=== PATIENT | male | born 1970 | race Caucasian/White ===

== ENCOUNTER 2025-02-11 09:31 | Inpatient (IN) | payer OTHER, SELFPAY ==
[2025-02-10 22:24] VITALS: BP 150/98
--- NOTE | 2025-02-10 22:37 | ED.GENMED ---
History of Present Illness
General
Chief Complaint: Numbness
Source: patient
Time Seen by Provider: 02/10/25 22:30
History of Present Illness
History of Present Illness:
54-year-old male presents to the emergency room complaining of left-sided paresthesias and a heaviness in his left arm and left leg. Patient states symptoms began around 2 PM. Symptoms have remained constant since then. Patient feels like his
left hand is having difficulty gripping and doing fine motor tasks. He denies any headache. Patient has a history of high cholesterol for which he takes a statin. He denies any recent trauma.
Past History
Past History
ED Past Medical History: Hypercholesterolemia
ED Past Surgical History: None and Urological (surgery for vasectomy)
Social History
Tobacco: Non-smoker
Alcohol: None
Personal:
Living: with family
Employment: Employed
Phy Exam
Physical Exam
Physical Exam:
General: Awake, Alert, Oriented X3. No acute distress.
Vitals: Moderately hypertensive
Head: Atraumatic
Eyes: Pupils equal, EOMI
Throat: Airway intact, no exudates
Neck: Trachea midline
Lungs: Clear and equal b/l
Heart: Regular rate, no murmurs
Abd: Soft, Nontender, No pulsatile mass
Neuro: Cranial nerves intact, muscle strength equal bilaterally, cerebellar exam normal, visual fortune intact
Skin: Warm, dry, no rash
Extremities: pulses equal b/l, no edema
Scores
NIH Stroke Score
Level of Consciousness: 0 - Alert
LOC Questions: 0-Answers both correctly
LOC Commands: 0-Performs both correctly
Best Horizontal Gaze: 0-Normal
Visual Fortune: 0=Normal, no visual loss
Facial Palsy: 0=Normal, symmetrical
Motor - Right Arm: 0=No drift 10 seconds
Motor - Left Arm: 0=No drift 10 seconds
Motor - Right Le-No drift 5 seconds
Motor - Left Le-No drift 5 seconds
Limb Ataxia: 0-Absent
Sensation: 0-Normal
Best Language: 0-No aphasia
Dysarthria: 0-Normal
Extinction and Inattention: 0-No abnormality
Total Score:: 0
Course
Orders/Labs/Results
Orders:
Orders
02/10/25 22:14
Electrocardiogram (*1) Urgent
Reason for Study: Chest Pain
EKG- Treatment ONCE
CXR2 [CR Chest - 2 Views ] Urgent
Comment:
Reason For Exam: chest pain
02/10/25 22:38
CT Head & Neck Angio W/wo IV Urgent
Comment:
Reason For Exam: left sided paresthesia/subj weakness
Bedside Glucose- Treatment ONCE
Cardiac Monitoring- Treatment ONCE
02/10/25 22:39
Electrocardiogram (*1) Stat
Reason for Study: Other
Other Reason for Exam: neuro symptoms
EKG- Treatment ONCE
02/10/25 22:42
Complete Blood Count/With Diff Urgent
Comprehensive Metabolic Panel Urgent
Troponin I Urgent
Abnormal Lab Results
02/10/25
22:42
WBC 11.3 H 10^3/uL
(4.8-10.8)
Absolute Lymphs (auto) 4.2 H 10^3/uL
(1.2-3.4)
Absolute Monos (auto) 0.7 H 10^3/uL
(0.1-0.6)
Glucose 159 H mg/dl
(70-99)
ALT 78 H U/L
(0-50)
02/10/25 22:42
02/10/25 22:42
Vital Signs
Initial and Last Documented VS:
Initial Vital Signs
Temp Pulse Resp BP Pulse Ox
98.5 F 109 18 150/98 98
02/10/25 22:24 02/10/25 22:24 02/10/25 22:24 02/10/25 22:24 02/10/25 22:24
Last Documented Vital Signs
Temp Pulse Resp BP Pulse Ox
98.5 F 94 12 157/90 96
02/10/25 22:24 02/11/25 00:00 02/11/25 00:00 02/11/25 00:00 02/10/25 22:50
ED Attending Note
-
Portions of this chart may have been created with voice recognition software.� Occasional wrong word or��sound alike� substitutions may have occurred due to the inherent limitations of voice recognition software.
Discharge Plan
Departure
Patient Disposition: Admit
Date of Disposition: 02/11/25
Time of Disposition: 03:19
Admit to: Telemetry
Presentation/result/management discussed w/ accepting MD/DO: Hospitalist
Condition: Fair
Discharge Problem:
Acute CVA (cerebrovascular accident)
Prescriptions:
No Action
simvastatin 10 MG tablet
10 mg PO HS
fexofenadine [Mel] 180 MG tablet
180 mg PO DAILY
mometasone [Nasonex] 17 GM spray,non-aerosol
17 gm NS DAILY
buspirone [BuSpar] 15 MG tablet
15 mg PO DAILY
desvenlafaxine succinate [Pristiq] 100 MG tablet extended release 24 hr
100 mg PO DAILY
oxycodone-acetaminophen 1 TABLET tablet
1 - 2 tab PO Q4HPRN PRN (Reason: prn for pain) Qty: 20 0RF
tamsulosin 0.4 MG capsule
0.4 mg PO DAILY Qty: 10 0RF
ondansetron 4 MG tablet,disintegrating
4 mg PO Q8 PRN (Reason: prn for nausea and vomiting) Qty: 14 0RF
Referrals:
Alireza Caballero MD [Family Provider] -
Interventions
Interventions:
*Risk Screen - Suicide Last Done: 02/10/25 22:24
*General Assessment Last Done: 02/10/25 22:24
*Neglect/Abuse Screening Last Done: 02/10/25 22:24
*ED- Fall Risk Assessment Last Done: 02/10/25 22:24
*ED COVID-19 Vaccine History Last Done: 02/10/25 22:24
ED- Neurological Assessment Last Done: 02/10/25 22:32
Discharge Date and Time
Print Language: IVORIAN
[2025-02-10 22:52] LABS: % Basophils 0.4 % (0-2); % Eosinophils 0.9 % (0-6); % Immature Granulocytes 0.3 % (0-0.5); % Lymphocytes 37.2 % (20.5-51.1); % Monocytes 6.1 % (1.7-9.3); % Neutrophils 55.1 % (42.2-75.2); Absolute Basophils 0.1 10^3/uL (0-0.2); Absolute Eosinophils 0.1 10^3/uL (0-0.7); Absolute Lymphocytes 4.2 10^3/uL (1.2-3.4); Absolute Monocytes 0.7 10^3/uL (0.1-0.6); Absolute Neutrophils 6.2 10^3/uL (1.4-6.5); Hematocrit 42.3 % (39.0-52.0); Hemoglobin 15.4 g/dL (13.0-18.0); Mean Corp Hgb Conc. 36.4 g/dL (33.0-37.0); Mean Corpuscular Hgb 30.3 pg (27.0-31.0); Mean Corpuscular Volume 83.3 fL (80.0-94.0); Mean Platelet Volume 9.9 fL (7.4-10.4); Nucleated Red Blood Cells % 0 % (-); Platelet Count 256 10^3/uL (130-400); Red Blood Cell Count 5.08 10^6/uL (4.70-6.10); Red Cell Dist. Width 12.1 % (11.5-14.5); White Blood Cell Count 11.3 10^3/uL (4.8-10.8)
[2025-02-10 23:02] VITALS: BMI 32.9
[2025-02-10 23:06] LABS: ALT (SGPT) 78 U/L (0-50); AST (SGOT) 54 U/L (17-59); Albumin 4.6 g/dl (3.5-5.0); Alkaline Phosphatase 62 U/L (38-126); Blood Urea Nitrogen 15 mg/dl (9-20); Calcium 10.1 mg/dl (8.4-10.2); Carbon Dioxide 27 mmol/L (22-30); Chloride 102 mmol/L (98-107); Estimated Creatinine Clearance 113 ml/min; Glucose 159 mg/dl (70-99); Potassium 4.1 mmol/L (3.5-5.1); Sodium 140 mmol/L (135-145); Total Bilirubin 0.7 mg/dl (0.2-1.3); Total Protein 7.4 g/dl (6.3-8.2); eGFR > 60.00
[2025-02-10 23:11] VITALS: BP 173/91
[2025-02-10 23:16] LABS: Troponin I < 0.012 ng/ml
[2025-02-11] VITALS (7 sets, daily range): BP systolic 138–180; BP diastolic 83–114; PULSE 82; O2SAT 94; BMI 32.9
--- NOTE | 2025-02-11 03:25 | DOWNTIME ---
There was a [employer] Downtime on 02/11/2025 from 0200 to 02/12/2024 at 0318 . Downtime documentation of patient's care, including medication administrations, has been reconciled in the electronic record per guidelines. Refer to the
patient's paper chart under the miscellaneous tab to see printed paper medication records and downtime forms.
--- NOTE | 2025-02-11 04:05 | HPS.HSE ---
Family Physician
-
Family Physician: Alireza Caballero
Chief Complaint
-
Left Sided Numbness
History of Present Illness
Patient is a 54y M with PMH significant for kidney stones and anxiety who presents to ED complaining of left sided numbness and tingling. Patient states that his symptoms started this afternoon shortly after reading a distressing work e-mail.
He noted pins and needles sensation in the LLE, LUE and L side of the face / mouth. Patient states that he felt a bit 'clumsy' with the LUE and LLE. He had a mild frontal headache. No vision changes.
His symptoms persisted throughout the day and he ultimately presented to the ED for further evaluation and treatment.
He denies any prior history of similar symptoms.
No recent illness. No recent medication changes.
Medical History
Past Medical History
Past Medical History: Reports Other
Additional Past Medical History:
Anxiety / Depression
Nephrolithiasis
Dyslipidemia
Past Surgical History: Reports None
Social History
Tobacco: Non-smoker
Alcohol: Occasional (Rarely)
Drug: None
Family History
Family History: Other (Father: CAD Mother: Pancreatic Cancer)
Allergies / Home Medications
Allergies reflects when Allergies were last updated in [facility].
Home Medications with original date entered in [facility]
Allergy/Medication List:
Allergies
Allergy/AdvReac Type Severity Reaction Status Date / Time
hayfever Allergy nasal Uncoded 05/21/15 07:35
symptoms
Home Medications
fexofenadine 180 mg tablet (Mel) 180 mg PO DAILY 08/04/12
simvastatin 10 mg tablet 10 mg PO HS 08/04/12
buspirone 5 mg tablet 5 mg PO TID 02/11/25
desvenlafaxine succinate 50 mg tablet,extended release 24 hr (Pristiq) 50 mg PO DAILY 02/11/25
Review of Systems
-
History Source: Patient
A 12 point ROS was completed and negative except as noted: Yes
Constitutional: Denies Fever or Chills
Respiratory: Denies Cough or Trouble Breathing
Cardiac: Denies Chest Pain or Palpitations
Abdomen/GI: Denies Abdominal Pain, Nausea, Vomiting or Diarrhea
: Denies Dysuria, Frequency or Flank Pain
Musculoskeletal: Denies Joint Pain or Edema
Neurological: Reports Headache, Weakness and Numbness; Denies Dizzy
Psych: Reports Anxiety; Denies Depression
Physical Exam
Vital Signs
Vital Signs
Temp Pulse Resp BP Pulse Ox
98.5 F 85 13 157/93 96
02/10/25 22:24 02/11/25 03:15 02/11/25 03:15 02/11/25 01:00 02/10/25 22:50
Physical Exam
General: Other (54y M in no acute distress.)
HEENT: Moist mucous membranes and Other (Thick neck.)
Respiratory: Clear; No Wheezes, Rales or Rhonchi
Cardiac: S1/S2 and Regular Rhythm; No Murmur
GI: Soft, Non Tender, Non Distended and Normal Bowel Sounds
Musculoskeletal: No Clubbing, No Cyanosis and No Edema
Neuro: AO x 3 and Other (Mild LUE weakness. Decreased coordination in the LUE compared to the R. Strength in LE intact and symmetric. Smile symmetric. Speech clear.)
Laboratory Results
-
02/10/25 22:42
02/10/25 22:42
Laboratory Results
Total Bilirubin 0.7 mg/dl (0.2-1.3) 02/10/25 22:42
AST 54 U/L (17-59) 02/10/25 22:42
ALT 78 U/L (0-50) H 02/10/25 22:42
Alkaline Phosphatase 62 U/L (38-126) 02/10/25 22:42
Troponin I < 0.012 ng/ml 02/10/25 22:42
Impression/Plan
-
A/P: Patient is a 54y M with PMH significant for anxiety and nephrolithiasis who presents to ED complaining of L sided numbness x several hours.
CVA / TIA
- Observe overnight for further evaluation and treatment.
- Persistent sensory symptoms on the L. Some LUE ataxia as well on exam.
- CTA in the ED was unremarkable.
- MRI in the AM.
- DAPT for now.
- Continue current simvastatin. Check lipid panel.
- Check A1C.
- PT / OT / Speech evaluations.
- Follow for any new / worsening symptoms.
- Neurology evaluation.
- BP elevated in the ED with no history of hypertension.
- Follow for improvement overnight. Add medication if needed for goal of normotension at discharge.
Anxiety / Depression
- Continue Pristiq and buspirone.
DVT Prophylaxis: Lovenox
Code Status: Full
[2025-02-11 05:23] LABS: Hematocrit 38.6 % (39.0-52.0); Hemoglobin 13.8 g/dL (13.0-18.0); Mean Corp Hgb Conc. 35.8 g/dL (33.0-37.0); Mean Corpuscular Hgb 30.3 pg (27.0-31.0); Mean Corpuscular Volume 84.8 fL (80.0-94.0); Mean Platelet Volume 9.8 fL (7.4-10.4); Platelet Count 226 10^3/uL (130-400); Red Blood Cell Count 4.55 10^6/uL (4.70-6.10); Red Cell Dist. Width 12.1 % (11.5-14.5); White Blood Cell Count 7.9 10^3/uL (4.8-10.8)
[2025-02-11 05:42] LABS: Blood Urea Nitrogen 15 mg/dl (9-20); Calcium 9.7 mg/dl (8.4-10.2); Carbon Dioxide 29 mmol/L (22-30); Chloride 104 mmol/L (98-107); Estimated Creatinine Clearance 113 ml/min; Glucose 112 mg/dl (70-99); HDL Cholesterol 35 mg/dl; LDL Cholesterol, Calculated 94 mg/dl; Sodium 141 mmol/L (135-145); Total Cholesterol 147 mg/dl (50-199); Triglyceride 90 mg/dl (10-149); Very Low Density Lipoprotein 18 mg/dl (0-30); eGFR > 60.00
[2025-02-11 06:13] LABS: TSH Reflex To Free T4 2.58 uIU/ml (0.47-4.68)
--- NOTE | 2025-02-11 08:14 | PTCARENOTE ---
NIHSS 1 for left sided face, arm, and leg decreased sensation. Pt displaying equal strength in all extremities.
[2025-02-11] MEDS: LOW STRENGTH ASPIRIN 81 MG PO (09:11)
[2025-02-11] MEDS: PLAVIX 75 MG PO (09:11)
--- NOTE | 2025-02-11 09:14 | CON.NEURO ---
Consultation
Order
Date of Consultation: 02/11/25
Requesting Provider: Raghu Becerra DO
Reason for Consult: Neurology Consultation Note.
HPI:This is a 54 year old RH man who presented to [facility] on 02/11/2025 with sensory symptoms.
According to the patient he developed an acute numbness and tingling affecting his left foot, leg, arm, and face around noted on February 10, 2025. Despite the symptoms, the patient initially chose not to seek immediate medical attention, believing the
symptoms would resolve on their own. He continued with his planned activities, including playing golf. Because his symptoms persisted he presented for an evaluation. Currently, the patient reports persistent numbness in his left leg, though he
notes some sensation returning to the top of his foot and leg. The facial numbness has largely resolved, with only a slight tingling sensation remaining when he presses on his lips. No reports of headaches, change vision, balance.
ER VS:150/98-173/91, 109, afebrile.
EKG: sinus tachy, QTc Int : 494 ms
PDMP:none
Labs:LDL 94.
Brain MRI wo charissa-3 mm acute or subacute infarct in the right thalamus.
CTA head/neck-no significant stenosis.
PMH: DLP, BMI 32, CHARISSA, allergic rhinitis, nephrolithiasis, psoriasis, hepatic steatosis, CHARISSA, MDD
PSH:LASIK
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
FH:father-pancreatic CA, no family history of strokes
All:NKDA
ROS: Constitutional: Negative. Negative for chills, fever and unexpected weight change.
HENT: Negative for ear pain, hearing loss, tinnitus and trouble swallowing.
Eyes: Negative. Negative for photophobia, pain and visual disturbance.
Respiratory: Negative for cough, choking and shortness of breath.
Cardiovascular: Negative for chest pain, palpitations and leg swelling.
Gastrointestinal: Negative for abdominal pain and vomiting.
Endocrine: Negative. Negative for cold intolerance.
Genitourinary: Negative for dysuria, flank pain and urgency.
Musculoskeletal: Negative for back pain, gait problem, neck pain and neck stiffness.
Skin: Negative for rash.
Allergic/Immunologic: Negative. Negative for immunocompromised state.
Neurological: positive for numbness
General: Well developed. In no acute distress.
Cardio: Regular rate and rhythm without murmur. Extremities are without cyanosis or edema.
Neuro:
Mental Status: Alert, oriented to person, place, and date. Normal attention and recall. Good fund of knowledge. Follows complex requests across the midline. Comprehension, naming, and repetition intact. Immediate and delayed recall 3/3.
Cranial Nerves: Pupils are equally round and reactive to light. EOMs full. Visual fortune full to confrontation. No ptosis. No nystagmus. V1-V3 intact to light touch and pinprick bilaterally, symmetric. Face symmetric. Normal hearing AU. The
palate elevated well. SCMs and traps 5/5. Tongue midline. No dysarthria.
Motor: Normal bulk and tone. No pronator or arm drift. Strength 5/5 throughout. No clonus.
Reflexes: 2+ throughout the upper extremities and knees. 2/2 in AJs. Plantar responses flexor bilaterally.
Sensory: Normal pinprick, vibration and JPS.
Coordination: No dysmetria or tremor.
Gait: deferred
Assessment and Plan:
I. Acute right thalamic stroke. Likely etiology- small vessel disease.
II. DLP
III.Elevated blood pressure
-Continue Telemetry monitoring
-BP goal-normotension.
-Continue DAPT for 3 weeks followed by ASA 81mg QD life long.
-Lipitor 40 mg QHS.
-Please follow urine tox
-TTE
-DVT prophylaxis.
-OP Neurology follow up
I personally reviewed all radiology and labs along with past medical records pertinent to current medical problems. Total time spent in patient care is 60 minutes.
Thank you for allowing us to participate in the care of this patient. Please do not hesitate to contact us with any questions or concerns.
Subjective/Objective
Subjective Data
Date of Service: February 11, 2025
Objective Data
Vital Signs
Temp Pulse Resp BP Pulse Ox
36.9 C 72 15 157/93 96
02/10/25 22:24 02/11/25 05:30 02/11/25 05:30 02/11/25 01:00 02/10/25 22:50
Lab Results
02/11/25 05:09
02/11/25 05:09
Sodium 141 mmol/L (135-145) 02/11/25 05:09
Potassium 4.0 mmol/L (3.5-5.1) 02/11/25 05:09
BUN 15 mg/dl (9-20) 02/11/25 05:09
Glucose 112 mg/dl (70-99) H 02/11/25 05:09
Calcium 9.7 mg/dl (8.4-10.2) 02/11/25 05:09
LDL Cholesterol, Calc 94 mg/dl 02/11/25 05:09
Patient Allergies
hayfever Allergy (Uncoded 05/21/15 07:35)
nasal symptoms
Medications
-
Active Medications
Generic Name Dose Route Start Last Admin
Trade Name Freq PRN Reason Stop Dose Admin
Acetaminophen 650 mg 02/11/25 04:21
Acetaminophen 325 Mg Tablet PO 03/11/25 04:20
Q4HPRN PRN
Mild Pain / Temp > 101
Aspirin 81 mg 02/11/25 08:00 02/11/25 09:11
Aspirin 81 Mg Chewable Tablet PO 03/11/25 07:59 81 mg
DAILY NORIS Administration
Atorvastatin Calcium 40 mg 02/11/25 22:00
Atorvastatin (Lipitor) 40 Mg Tablet PO 03/11/25 21:59
HS NORIS
Buspirone HCl 10 mg 02/11/25 08:00
Buspirone 10 Mg Tablet PO 03/11/25 07:59
TID NORIS
Clopidogrel Bisulfate 75 mg 02/11/25 08:00 02/11/25 09:11
Clopidogrel 75 Mg Tablet PO 03/11/25 07:59 75 mg
DAILY NORIS Administration
Desvenlafaxine Succinate 100 mg 02/11/25 08:00
Desvenlafaxine Succinate (Pristiq) 100 Mg Tab.Er.24h PO 03/11/25 07:59
DAILY NORIS
Enoxaparin Sodium 40 mg 02/11/25 18:00
Enoxaparin Sodium 40 Mg/0.4 Ml Syringe SC 03/11/25 17:59
QPM NORIS
Loratadine 10 mg 02/11/25 08:00
Loratadine 10 Mg Tablet PO 03/11/25 07:59
DAILY NORIS
Sodium Chloride 0 flush 02/11/25 05:00
Sodium Chloride 0.9% (Flush) Syringe IV 03/11/25 04:59
PER PROTOCOL NORIS
Home Medications
�Medication �Instructions �Recorded
fexofenadine 180 mg tablet 180 mg PO DAILY 08/04/12
(Mel)
simvastatin 10 mg tablet 10 mg PO HS 08/04/12
buspirone 5 mg tablet 5 mg PO TID 02/11/25
desvenlafaxine succinate 50 mg 50 mg PO DAILY 02/11/25
tablet,extended release 24 hr
(Pristiq)
Vital Signs and Labs
-
Vital Signs and Labs:
Vital Signs
Temp Pulse Resp BP Pulse Ox
36.9 C 72 15 157/93 96
02/10/25 22:24 02/11/25 05:30 02/11/25 05:30 02/11/25 01:00 02/10/25 22:50
Lab Results
02/11/25 05:09
02/11/25 05:09
Sodium 141 mmol/L (135-145) 02/11/25 05:09
Potassium 4.0 mmol/L (3.5-5.1) 02/11/25 05:09
BUN 15 mg/dl (9-20) 02/11/25 05:09
Glucose 112 mg/dl (70-99) H 02/11/25 05:09
Calcium 9.7 mg/dl (8.4-10.2) 02/11/25 05:09
LDL Cholesterol, Calc 94 mg/dl 02/11/25 05:09
Medications
-
Medications:
Generic Name Dose Route Start Last Admin
Trade Name Freq PRN Reason Stop Dose Admin
Acetaminophen 650 mg 02/11/25 04:21
Acetaminophen 325 Mg Tablet PO 03/11/25 04:20
Q4HPRN PRN
Mild Pain / Temp > 101
Aspirin 81 mg 02/11/25 08:00 02/11/25 09:11
Aspirin 81 Mg Chewable Tablet PO 03/11/25 07:59 81 mg
DAILY NORIS Administration
Atorvastatin Calcium 40 mg 02/11/25 22:00
Atorvastatin (Lipitor) 40 Mg Tablet PO 03/11/25 21:59
HS NORIS
Buspirone HCl 10 mg 02/11/25 08:00
Buspirone 10 Mg Tablet PO 03/11/25 07:59
TID NORIS
Clopidogrel Bisulfate 75 mg 02/11/25 08:00 02/11/25 09:11
Clopidogrel 75 Mg Tablet PO 03/11/25 07:59 75 mg
DAILY NORIS Administration
Desvenlafaxine Succinate 100 mg 02/11/25 08:00
Desvenlafaxine Succinate (Pristiq) 100 Mg Tab.Er.24h PO 03/11/25 07:59
DAILY NORIS
Enoxaparin Sodium 40 mg 02/11/25 18:00
Enoxaparin Sodium 40 Mg/0.4 Ml Syringe SC 03/11/25 17:59
QPM NORIS
Loratadine 10 mg 02/11/25 08:00
Loratadine 10 Mg Tablet PO 03/11/25 07:59
DAILY NORIS
Sodium Chloride 0 flush 02/11/25 05:00
Sodium Chloride 0.9% (Flush) Syringe IV 03/11/25 04:59
PER PROTOCOL NORIS
Home Medications
-
Home Medications
fexofenadine 180 mg tablet (Mel) 180 mg PO DAILY 08/04/12
simvastatin 10 mg tablet 10 mg PO HS 08/04/12
buspirone 5 mg tablet 5 mg PO TID 02/11/25
desvenlafaxine succinate 50 mg tablet,extended release 24 hr (Pristiq) 50 mg PO DAILY 02/11/25
[2025-02-11 10:21] LABS: Glycohemoglobin (HgbA1c) 5.8 % (4.0-5.6)
--- NOTE | 2025-02-11 10:25 | PTOTSP ---
Speech Therapy Assessment
Speech, language and oral/pharyngeal swallow deemed within functional limits. Reviewed high level cognitive/communication deficits that patient may notice when resuming his normal activities after d/c. Would need order from PCP for OP services.
Recommend
1. Continue regular solids and thin liquids.
2. Comprehensive testing in OP if patient notices any difficulty resuming his normal activities after d/c.
[2025-02-11 10:33] LABS: Amphetamines Negative (Negative); Barbiturates Negative (Negative); Benzodiazepines Negative (Negative); Buprenorphine Negative (Negative); Cocaine Negative (Negative); Marijuana Negative (Negative); Methadone Negative (Negative); Methamphetamines Negative (Negative); Opiates Negative (Negative); Phencyclidine Negative (Negative); Tricyclic Antidepressants Negative (Negative)
[2025-02-11] MEDS: PRISTIQ 100 MG PO (10:58)
[2025-02-11] MEDS: CLARITIN 10 MG PO (10:58)
[2025-02-11] MEDS: BUSPAR 10 MG PO ×2 (10:58→15:09)
--- NOTE | 2025-02-11 11:06 | CM ---
Addendum entered by Alfonzo Payne 02/11/25 16:02:
Discharge order noted.
Pt is aware and he stated he will drive home.
PT, OT and ST evaluations noted - no skilled services indicated.
D/C plan: home no needs. Pt to drive home.
Addendum entered by Alfonzo Payne 02/11/25 15:08:
Pt's admission status upgraded to inpatient. Pt has been notified.
Original Note:
CM following re: discharge planning.
Reviewed pt's chart, met with pt.
Pt is a 54 year old male, admitted with OBS status and primary dx of Numbness. OBS status explained to the pt, OBS letter placed on chart, pt has a copy.
Pt reports he lives alone 2SH, 1 step to enter, has 2 children. Pt described himself as independent in all [employer], drives, works.
PCP: Alireza Caballero
[facility]: [facility]
D/c plan: home with anticipated no needs. Pt stated his car is on the arking lot and he will drive home at discharge.
CM will follow with discharge plan updates as hospitalization progresses
--- NOTE | 2025-02-11 11:24 | W.PN.UPDATE ---
Update Note
Progress Note Update
Seen and examined independent of overnight physician. Nonbillable note. States of left-sided decree sensation. Happened yesterday around 2 PM.
Denies any headache, nausea, vision problems. Denies any chest pain palpitation. Denies any upper or lower extremity weakness.
General: Other (54y M in no acute distress.)
HEENT: Moist mucous membranes and Other (Thick neck.)
Respiratory: Clear; No Wheezes, Rales or Rhonchi
Cardiac: S1/S2 and Regular Rhythm; No Murmur
GI: Soft, Non Tender, Non Distended and Normal Bowel Sounds
Musculoskeletal: No Clubbing, No Cyanosis and No Edema
Neuro: AO x 3 and dec sensation LUE and LLE. Speech clear. Gait not assessed. EOMI
A/P: Patient is a 54y M with PMH significant for anxiety and nephrolithiasis who presents to ED complaining of L sided numbness x several hours.
Acute or subacute infarct right thalamus
- Persistent sensory symptoms on the L. Some LUE ataxia as well on exam.
- CTA in the ED was unremarkable.
- MRI Tiny 3 mm acute or subacute infarct in the right thalamus.
- DAPT for now.
- Increase statin. LDL 94.
- Check A1C. At 5.8.
- Speech regular diet. PT OT.
- Follow for any new / worsening symptoms.
- Neurology evaluation. Echocardiogram pending
- Monitor blood pressure. Persistently elevated will need to be started on medication.
Anxiety / Depression
- Continue Pristiq and buspirone.
DVT Prophylaxis: Lovenox
Code Status: Full
--- NOTE | 2025-02-11 15:00 | W.DCSUMMARY ---
Discharge Summary
Discharge Data
Date of Admission: 02/11/25
Date of Discharge: 02/11/25
-
Pending Results: No
Hospital Course
54-year-old male past medical history of anxiety, hyperlipidemia who is presented with left-sided decreased sensation. States his symptoms started yesterday at 2 PM. Patient states of increasing amount of stress at work. Upon admission patient
was found to have elevated blood pressure. Patient with CT of the head which was negative for acute abnormality. CT angiogram was negative for acute stenosis or aneurysm. Patient underwent MRI of the brain which showed Tiny 3 mm acute or subacute
infarct in the right thalamus. Echocardiogram was done which showed EF of 55 to 60%. Normal left ventricular size and function without regional wall motion abnormality. No significant valvular disease. No events were noted on telemetry. Patient
was eval by neurology, speech pathologist, physical and occupational therapies. Patient was started on dual antiplatelet agents with aspirin and Plavix for 3 weeks then continue aspirin. Simvastatin was switched to Lipitor. Patient also had
uncontrolled blood pressure and was started on losartan. Patient was to follow with primary doctor and undergo blood work. Of note patient also underwent sleep study in the past and was diagnosed with sleep apnea. Patient states not able to
tolerate CPAP. Recommended to give it a try again as increased risk of uncontrolled blood pressure and risk of stroke and cardiac event with worsening of sleep apnea. All patient questions were answered and he was agreeable amenable discharge
planning.
Discharge Plan
-
Patient Disposition: Home (Routine Discharge)
Discharge Diagnosis/Procedures: Stroke
Hyperlipidemia
Essential Hypertension
Condition: Fair
Diet: Low Cholesterol
Activity: As tolerated
Driving Restrictions: As prior to admission
Referrals:
Damon Brown MD [Active] - in one to two months
Alireza Caballero MD [Family Provider] - in less than 1 week
Additional Discharge Medication Instructions: Continue with aspirin and Plavix together for additional 20 days then discontinue Plavix and continue with aspirin.
Prescriptions:
New
losartan 25 mg Tablet
25 mg PO DAILY 30 Days Qty: 30 0RF
aspirin 81 mg Tablet,Chewable
81 mg PO DAILY Qty: 30 0RF
atorvastatin 40 mg Tablet
40 mg PO HS 30 Days Qty: 30 0RF
clopidogrel 75 mg Tablet
75 mg PO DAILY Qty: 20 0RF
Continued
fexofenadine [Mel] 180 MG tablet
180 mg PO DAILY
desvenlafaxine succinate [Pristiq] 50 mg Tablet Extended Release 24 Hr
50 mg PO DAILY
buspirone 5 mg Tablet
5 mg PO TID
Discontinued
simvastatin 10 MG tablet
10 mg PO HS
Discharge Date and Time
Print Language: JAMAICAN
[2025-02-11] MEDS: COZAAR 25 MG PO (15:07)
--- NOTE | 2025-02-11 17:16 | PTCARENOTE ---
Discharge order acknowledged for patient. Pt able to perform teach back of stroke symptoms and the need for immediate medical intervention. Pt displayed understanding of discharge medicine regiment. IV site removed. cardiac monitor discontinued.
Pt escorted to exit by wheelchair.
== END 2025-02-11 17:22 | disposition home or self-care (01) | DRG 66 ==
LOC: 1 ACUTE 09:31
PROVIDERS: Emergency Medicine; ADMITTING PHYSICIAN Hospitalist; ATTENDING PHYSICIAN Hospitalist; CONSULT PHYSICIAN Psychiatry & Neurology Neurology; EMERGENCY PHYSICIAN Emergency Medicine; FAMILY PHYSICIAN Internal Medicine
DX: I63.9 Cerebral infarction, unspecified (principal); I10 Essential (primary) hypertension; G47.30 Sleep apnea, unspecified; Z82.49 Family history of ischemic heart disease and other diseases of the circulatory system; Z87.442 Personal history of urinary calculi; E78.5 Hyperlipidemia, unspecified; Z60.2 Problems related to living alone
CPT/HCPCS: 70496; 70498; 70551; 71046; 80048; 80053; 80061; 80306; 83036; 84443; 84484; 85025; 85027; 92523; 92610; 93005; 93306; 97162; 97166; 99285; Q9967

== ENCOUNTER → 2025-06-10 07:58 | Outpatient (REF) | payer OTHER, SELFPAY | LOC: DHSLP 07:58 | PROVIDERS: ATTENDING PHYSICIAN Internal Medicine Critical Care Medicine; FAMILY PHYSICIAN Internal Medicine | DX: G47.33 Obstructive sleep apnea (adult) (pediatric) (principal) | CPT/HCPCS: 95800 ==

== ENCOUNTER 2025-09-03 06:15 | Day surgery (SDC) | payer OTHER, SELFPAY | END 2025-09-03 12:06 | disposition home or self-care (01) | LOC: GI 06:15 | PROVIDERS: ATTENDING PHYSICIAN Internal Medicine Gastroenterology | DX: Z12.11 Encounter for screening for malignant neoplasm of colon (principal); D12.3 Benign neoplasm of transverse colon; K57.30 Diverticulosis of large intestine without perforation or abscess without bleeding; K64.8 Other hemorrhoids; Z86.0100 Personal history of colon polyps, unspecified | CPT/HCPCS: 45385; 88305 ==

== ENCOUNTER 2025-10-15 15:35 | Emergency (ER) | payer OTHER, SELFPAY ==
[2025-10-15 15:53] VITALS: BP 143/105
[2025-10-15 16:47] LABS: Hematocrit 41.4 % (39.0-52.0); Hemoglobin 14.5 g/dL (13.0-18.0); Mean Corp Hgb Conc. 35.0 g/dL (33.0-37.0); Mean Corpuscular Volume 85.0 fL (80.0-94.0); Nucleated Red Blood Cells % 0 % (-); Platelet Count 239 10^3/uL (130-400); Red Cell Dist. Width 12.2 % (11.5-14.5)
[2025-10-15 16:59] LABS: ALT (SGPT) 40 U/L (0-50); AST (SGOT) 29 U/L (17-59); Albumin 4.8 g/dl (3.5-5.0); Alkaline Phosphatase 74 U/L (38-126); Blood Urea Nitrogen 15 mg/dl (9-20); Calcium 9.6 mg/dl (8.4-10.2); Carbon Dioxide 28 mmol/L (22-30); Chloride 99 mmol/L (98-107); Glucose 128 mg/dl (70-99); Potassium 4.1 mmol/L (3.5-5.1); Sodium 135 mmol/L (135-145); Total Protein 7.1 g/dl (6.3-8.2); eGFR > 60.00
[2025-10-15 17:07] LABS: Troponin I < 0.012 ng/ml
[2025-10-15 17:24] VITALS: BP 161/99
[2025-10-15 18:00] VITALS: BP 144/90
[2025-10-15 19:00] VITALS: BP 146/96
--- NOTE | 2025-10-15 19:19 | ED.GENMED ---
History of Present Illness
General
Chief Complaint: Chest Pain
Source: patient
Exam Limitations: none
Time Seen by Provider: 10/15/25 19:15
Nursing documentation reviewed up to this point in time: agreed with
History of Present Illness
History of Present Illness:
Patient to the emergency department for evaluation of chest pain. He states his symptoms started a few days ago. He describes chest symptom as intermittent, dull sensation. He denies any associated nausea vomiting or diaphoresis. He denies any
shortness of breath, lightheadedness/dizziness, weakness. There is no aggravating or alleviating factors. Pain does not radiate. No prior history of same. He states that he has a history of sleep apnea but has been unable to wear the CPAP. He
is scheduled for further studies in November. He feels that the pressure he is feeling intermittently is related to his untreated sleep apnea. Brought self to the emergency department for evaluation.
Past History
Past History
ED Past Medical History: CVA, HTN and Hypercholesterolemia
ED Past Surgical History: None and Urological (surgery for vasectomy)
Social History
Tobacco: Non-smoker
Alcohol: None
Personal:
Living: with family
Employment: Employed
Review of Systems
Review of Systems
Allergies reviewed?: Yes
All Other Systems: ROS reviewed and negative except as documented in HPI and ROS
Phy Exam
General Physical Exam
General Presentation: well appearing and no apparent distress
General age: appears stated age
General Skin: warm and dry
General Habitus: normal
Cardiovascular Exam
Cardiovascular Exam: regular rate/rhythm and no edema
Pulmonary Exam
Pulmonary Exam: lungs clear and no respiratory distress
Musculoskeletal Exam
Musculoskeletal Exam: full ROM, no edema and neuro vasc intact
Skin Exam
Skin Exam: normal color, warm/dry and no rash
Psychiatric Exam
Psychiatric Exam: normal mood/affect
Scores
Heart Score for Chest Pain Patients
STEMI patient?: No
History: Slightly or Non-Suspicious
ECG: Normal
Age: >45 - <65 years
Risk Factors: >/= 3 Risk Factors or History of CAD
Troponin: </= Normal Limit
Heart Score for Chest Pain Patients: 3
Heart Score Risk: 2.5% MACE over next 6 weeks
Course
Orders/Labs/Results
Orders:
Orders
10/15/25 15:36
Electrocardiogram (*1) Urgent
Reason for Study: Chest Pain
EKG- Treatment ONCE
10/15/25 15:56
Chest [CR Chest - 2 Views ] Urgent
Comment:
Reason For Exam: chest pain
10/15/25 16:01
Complete Blood Count/With Diff Urgent
Comprehensive Metabolic Panel Urgent
Troponin I Urgent
Abnormal Lab Results
10/15/25
16:01
Glucose 128 H mg/dl
(70-99)
10/15/25 16:01
10/15/25 16:01
Vital Signs
Initial and Last Documented VS:
Initial Vital Signs
Temp Pulse Resp BP Pulse Ox
98.5 F 101 20 143/105 98
10/15/25 15:53 10/15/25 15:53 10/15/25 15:53 10/15/25 15:53 10/15/25 15:53
Last Documented Vital Signs
Temp Pulse Resp BP Pulse Ox
98.5 F 85 18 146/96 95
10/15/25 15:53 10/15/25 19:15 10/15/25 19:15 10/15/25 19:00 10/15/25 19:20
*Radiology
Radiology exam reviewed: radiology read reviewed
*Pulse Oximetry
SaO2: 95
Oxygen Mode of Delivery: Room air
Patient hypoxic: no
*Critical Care Note
Total Time (30-74mins, 75-104mins- exclusive of procedures): Not Applicable
Update Note
Update Note:
Patient to the emergency department for evaluation of chest pressure. Patient stated symptoms started over the past few days. He feels it is related to his inability to wear his CPAP machine for sleep apnea. There are no associated symptoms such
as nausea vomiting diaphoresis shortness of breath dizziness. There is no radiation of pain. Currently asymptomatic .vital signs are stable he remains afebrile labs reviewed CBC and CMP without concerning findings troponin is negative. EKG
unchanged. Doubtful for ACS. He does have a history of stroke in the past. He has a history of high blood pressure and sleep apnea. Will recommend follow-up with cardiology. He will be discharged home tonight, close follow-up with PCP he was
given instructions on signs and symptoms return to the emergency department he is agreeable to this plan.
ED Attending Note
-
Portions of this chart may have been created with voice recognition software.� Occasional wrong word or��sound alike� substitutions may have occurred due to the inherent limitations of voice recognition software.
Discharge Plan
Departure
Patient Disposition: Home (Routine Discharge)
Date of Disposition: 10/15/25
Time of Disposition: 19:31
Patient with high blood pressure during this ER visit?: No
Condition: Good
Covid-19: Not Applicable
Discharge Problem:
Chest pain
Instructions: Chest Pain DCA Follow Up
Prescriptions:
No Action
fexofenadine [Mel] 180 MG tablet
180 mg PO DAILY
desvenlafaxine succinate [Pristiq] 50 mg Tablet Extended Release 24 Hr
50 mg PO DAILY
buspirone 5 mg Tablet
5 mg PO TID
losartan 25 mg Tablet
25 mg PO DAILY 30 Days Qty: 30 0RF
aspirin 81 mg Tablet,Chewable
81 mg PO DAILY Qty: 30 0RF
atorvastatin 40 mg Tablet
40 mg PO HS 30 Days Qty: 30 0RF
clopidogrel 75 mg Tablet
75 mg PO DAILY Qty: 20 0RF
Referrals:
Alireza Caballero MD [Family Provider, Internal Medicine] - Call in 1-3 days for appt
Activity Restrictions/Additional Instructions:
Return to the emergency department immediately for any changes in/worsening of your symptoms especially increasing pain, nausea/vomiting/sweating, shortness of breath lightheadedness/dizziness or for any further concerns.
Interventions
Interventions:
*General Assessment Last Done: 10/15/25 18:03
*Neglect/Abuse Screening Last Done: 10/15/25 15:53
*ED COVID-19 Vaccine History Last Done: 10/15/25 17:17
*ED Influenza Vaccine History Last Done: 10/15/25 17:17
[facility] Fall Risk Assessment Tool Last Done: 10/15/25 17:17
*Risk Screen - Suicide (C-SSRS) Last Done: 10/15/25 15:53
ED- Cardiac Assessment Last Done: 10/15/25 19:30
Discharge Date and Time
Print Language: SRI LANKAN
[2025-10-15 19:43] VITALS: BP 140/97
== END 2025-10-15 19:45 | disposition home or self-care (01) ==
LOC: EMR 15:35
PROVIDERS: EMERGENCY PHYSICIAN Emergency Medicine; FAMILY PHYSICIAN Internal Medicine
DX: R07.9 Chest pain, unspecified (principal); I10 Essential (primary) hypertension; E78.00 Pure hypercholesterolemia, unspecified; G47.30 Sleep apnea, unspecified; Z79.82 Long term (current) use of aspirin; Z79.02 Long term (current) use of antithrombotics/antiplatelets; Z86.73 Personal history of transient ischemic attack (TIA), and cerebral infarction without residual deficits
CPT/HCPCS: 99284; 71046; 80053; 84484; 85025; 93005